=== PATIENT | male | born 1945 | race Caucasian/White ===

== ENCOUNTER 2016-10-24 07:55 | Day surgery (SDC) | payer MEDICARE, BC ==
[2016-10-24] MEDS ORDERED: fentaNYL 100 MCG/2 ML SDV ONE (08:03)
[2016-10-24] MEDS ORDERED: Propofol 200 MG/20 ML SDV ONE (08:03)
[2016-10-24] MEDS ORDERED: Midazolam 1 MG/ML 2 ML SDV ONE (08:03)
[2016-10-24] MEDS ORDERED: Dextrose 5%-Lactated Ringers 1,000 ML IV SCH (08:30)
[2016-10-24 10:42] VITALS: BP 127/78
--- NOTE | 2016-10-28 13:58 | OR ---
DATE OF PROCEDURE: 10/24/2016 PREOPERATIVE DIAGNOSIS: Recent history of colon diverticulitis with some persistent left lower quadrant discomfort. POSTOPERATIVE DIAGNOSIS: [place] diverticulosis with focal low-grade sigmoid colon diverticulitis. OPERATIVE PROCEDURE: Flexible colonoscopy. ANESTHESIA: IV sedation. INDICATION FOR PROCEDURE: This 70-year-old who had a documented episode of sigmoid colon diverticulitis in July of this year, who has had some intermittent persistent left lower quadrant discomfort to try to determine whether or not there is some ongoing inflammatory process continuing versus more remote chance of a neoplastic process. The patient is to undergo a colonoscopy with biopsies and polypectomy at this time. Potential risks including bleeding and perforation were discussed and the patient wishes to proceed. DETAILS OF PROCEDURE: The patient was taken to the operating room and placed in a left lateral decubitus position. IV sedation was administered, after which the initial digital rectal exam was performed and was unremarkable. Colonoscope was then passed into the rectum with retroflexion revealing uncomplicated hemorrhoidal columns. The scope was eventually passed to the level of the cecum. The patient did have ulloa diverticulosis with a diverticula extending from the beginning of the sigmoid colon, all way up to the cecum. Most of the diverticular disease within the left side, however, there was a focal area in the sigmoid colon and it was slightly reddened and firm and edematous, consistent with some probable persistent low-grade diverticulitis. No purulence was seen and no stricture or other complication identified. Apart from that, there were no areas of polyps or other signs of neoplasia during the exam. The prep was generally quite good. The scope was then withdrawn. The above findings reconfirmed. Plan will be to begin the patient on a course of doxycycline 100 mg b.i.d. x10 days. We will see the patient back in the clinic on 11/06/2016 to see how we are doing at that point. At some point, we will want to be sure that the diverticulitis has cleared. Otherwise, surgical resection at some point may be warranted, should that not be achievable. Christiano Patel MD /[id number]
== END 2016-10-24 10:55 | disposition home or self-care (01) ==
LOC: JP.SDS 07:55
PROVIDERS: ATTEND Surgery
DX: K57.30 Diverticulosis of large intestine without perforation or abscess without bleeding (principal); I10 Essential (primary) hypertension; E78.5 Hyperlipidemia, unspecified; Z88.1 Allergy status to other antibiotic agents
CPT/HCPCS: 45378; J2250; J2704; J3010; J7042